=== PATIENT | female | born 1985 | race Hispanic/Latino ===

== ENCOUNTER → 2023-11-17 | Outpatient (CLI) | payer BC | END | disposition home or self-care (01) | LOC: RAH 10:00 | PROVIDERS: ATTEND Internal Medicine | DX: Z12.31 Encounter for screening mammogram for malignant neoplasm of breast (principal) | CPT/HCPCS: 77067 ==

== ENCOUNTER 2024-08-01 06:18 | Day surgery (SDC) | payer BC ==
[2024-07-28 10:22] LABS: BASOPHILS # (AUTO) 0.03 K/uL (0.00-0.20); BASOPHILS % (AUTO) 0.4 % (0.0-5.0); EOSINOPHILS # (AUTO) 0.49 K/uL (0.00-0.70); EOSINOPHILS % (AUTO) 6.2 % (0.0-8.0); HEMATOCRIT 40.2 % (36-48); IMMATURE GRANULOCYTE ABSOLUTE 0.03 K/uL (0-1); LYMPHOCYTES # (AUTO) 2.1 K/uL (1.0-4.8); LYMPHOCYTES % (AUTO) 26.7 % (21.0-51.0); MEAN CORPUSCULAR HEMOGLOBIN 28.8 pg (27.0-33.0); MEAN CORPUSCULAR HGB CONC 33.3 g/dL (32.0-36.0); MEAN CORPUSCULAR VOLUME 86.5 fL (79-99); MONOCYTES # (AUTO) 0.6 K/uL (0.1-1.0); NEUTROPHILS # (AUTO) 4.6 K/uL (1.8-7.7); NEUTROPHILS % (AUTO) 58.3 % (40.0-77.0); PLATELET COUNT (AUTO) 234 K/uL (130-400); RED BLOOD CELL COUNT(AUTO) 4.65 MIL/uL (4.00-5.50); WHITE BLOOD COUNT (AUTO) 7.9 K/uL (4.8-10.8)
[2024-07-28 10:34] LABS: INR 0.96 (0.85-1.15); PROTHROMBIN TIME 10.4 SEC (9.6-11.6)
[2024-07-28 10:35] LABS: PARTIAL THROMBOPLASTIN TIME 29.8 SEC (26.3-35.5)
[2024-07-28 10:40] LABS: ALBUMIN 3.8 g/dL (3.5-5.0); BILIRUBIN,TOTAL 0.3 mg/dL (0.2-1.0); CREATININE 0.6 mg/dL (0.5-1.0); POTASSIUM 3.6 mmol/L (3.5-5.1); TOTAL PROTEIN, SERUM 7.6 g/dL (6.0-8.3)
--- NOTE | 2024-07-28 10:58 | EKG ---
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
[2024-08-01] VITALS (13 sets, daily range): BP systolic 90–139; BP diastolic 55–90; PULSE 69–90; RESP 12–17; TEMP 97.3–98
[~2024-08-01] VITALS: Ht 160 cm; Wt 81.1 kg
[~2024-08-01 06:18] MED LIST: HYDR12.54 PO; LOSA100T59 PO
[2024-08-01] MEDS: LACTATED RINGERS 1000ML 1,000 ML IV ONE (07:24)
[2024-08-01] MEDS: ceFAZolin SODIUM 1 GM VIAL ONE (07:24)
[2024-08-01] MEDS ORDERED: MIDAZOLAM HCL 1 MG/ML 2ML VIAL ONE (08:02)
[2024-08-01] MEDS ORDERED: proPOFol 10 MG/ML 20ML VIAL IV ONE (08:05)
[2024-08-01] MEDS ORDERED: FENTanyl CITRate PF 50 MCG/1 ML 2ML VIAL ONE (08:05)
[2024-08-01] MEDS: BUPIvacaine/PF 0.25% 30ML VIAL IJ ONE (08:22)
[2024-08-01] MEDS: LIDOCAINE HCL 1% 20 ML VIAL ONE (08:22)
--- NOTE | 2024-08-01 08:37 | OP ---
Operative Note: DATE OF PROCEDURE: 08/01/24 SURGEON: CAROL IGLESIAS MD [employer]T BUCKLE MAKER: [None] ANESTHESIA: [General plus local] PREOPERATIVE DIAGNOSIS: [External hemorrhoids] POSTOPERATIVE DIAGNOSIS: [External hemorrhoid] PROCEDURE: [External hemorrhoidectomy x3.] ESTIMATED BLOOD LOSS: [None] INDICATIONS: [This is a 38-year-old female who presents to clinic complaining of perianal pain and discomfort, worse when wiping, she feels some skin tags over the perianal area and that makes her hygiene challenging. After extensive discussion with the patient in regards to the risks of operations from pain postoperatively, she agreed to undergo an excision of anal tags and all other indicated procedure. Risks recuperation and alternative were explained in detail to the patient, and all questions answered to her satisfaction.] DESCRIPTION OF PROCEDURE: [The patient was identified in the holding area transferred to the OR placed supine on the operative table. Venodyne boots were placed for DVT prophylaxis. IV antibiotics were given within the hour of skin incision. After general anesthesia was obtained and time-out conducted, she was placed in lithotomy position with great care taken to pad all pressure points. Area was prepped and draped in the usual sterile fashion. An anal block was given, 1% lidocaine and 0.25% Marcaine was used. Careful examination under anesthesia did not reveal any other pathology in the anorectal region. External hemorrhoids were identified in three quadrants and they were excised with the Bovie cautery, in every quadrant. Perianal skin was then approximated using a 3-0 catgut chromic. Great care was taken to preserve mucosal bridges between surgical sites. Area was aspirated then irrigated, hemostasis noted to be thorough. Counts were done and correct, there were no complications, was present and scrubbed for the entire case.] CAROL SANDERS MD Aug 01, 2024 08:37
--- NOTE | 2024-08-01 09:55 | NUR ---
Patient aox4. Denies c/o pain or discomfort. Surgical dressing clean, dry and intact. Voiced understanding to surgical site precautions and follow up expectations. Ambulated to bathroom with standby assist. Voided large amount of clear urine. PIV discontinued with catheter tip intact. Full and complete Discharge instructions given to Patient and . All questions answered. W/C to POV with to Home.
== END 2024-08-01 09:55 | disposition home or self-care (01) ==
LOC: DAH 06:18
PROVIDERS: ATTEND Surgery
DX: K64.1 Second degree hemorrhoids (principal); K64.4 Residual hemorrhoidal skin tags; K62.5 Hemorrhage of anus and rectum; L91.8 Other hypertrophic disorders of the skin; I10 Essential (primary) hypertension; E66.01 Morbid (severe) obesity due to excess calories; Z68.30 Body mass index [BMI] 30.0-30.9, adult; Z79.899 Other long term (current) drug therapy
CPT/HCPCS: 80053; 84703; 85025; 85610; 85730; 36415; 93005; 46999; 82948; 81025; 88304; A6260; J0665; A4663; J7120 ×2; J3010; J0690; J2250; J2704; A4649; A4215; A4223; A4222; A4221; J3490